=== PATIENT | male | born 1970 | race African-American/Black ===

== ENCOUNTER 2020-03-02 15:25 | Emergency (ER) | payer OTHER ==
[~2020-03-02] VITALS: Ht 167.6 cm; Wt 79.4 kg
[2020-03-02] MEDS ORDERED: TESSALON PERLE100 MG PO (17:39)
[2020-03-02] MEDS ORDERED: ZPAK PO (17:39)
[2020-03-02 18:11] VITALS: BP 123/84
== END 2020-03-02 18:13 | disposition home or self-care (01) ==
LOC: ER 15:25
DX: U07.1 COVID-19 (principal); J06.9 Acute upper respiratory infection, unspecified

== ENCOUNTER 2020-03-06 09:54 | Emergency (ER) | payer OTHER ==
[~2020-03-06] VITALS: Ht 167.6 cm; Wt 79.4 kg
[~2020-03-06 09:54] MED LIST: TESSALON PERLE100 MG PO; ZPAK PO
[2020-03-06 10:42] LABS: ABSOLUTE NEUTROPHILS 5.9 thou/uL (1.4-8.2); BASOPHILS 0.6 % (0.0-2.0); HEMATOCRIT 43.4 % (42.0-52.0); HEMOGLOBIN 15.3 gm/dL (14.0-18.0); LYMPHOCYTES 16.3 % (24.0-44.0); MCHC 35.2 g/dL (28.0-37.0); MCV 79.4 fL (80.0-100.0); MONOCYTES 7.6 % (1.0-8.0); PLATELET COUNT 213 thou/uL (150-400); POLYS 75.5 % (36.0-66.0); RBC 5.47 mil/uL (4.50-6.00); WBC 7.8 thou/uL (4.0-11.0)
[2020-03-06 10:57] LABS: ANION GAP 12 mmol/L (7-16); BUN 17 mg/dL (7-18); CALCIUM 8.8 mg/dL (8.5-10.1); CHLORIDE 95 mmol/L (98-107); CO2 25 mmol/L (21-32); CREATININE 1.7 mg/dL (0.7-1.3); GLUCOSE 145 mg/dL (74-106); POTASSIUM 3.6 mmol/L (3.5-5.1); SODIUM 132 mmol/L (136-145)
[2020-03-06 11:07] LABS: TROPONIN-I <0.06 ng/mL (<0.06)
--- NOTE | 2020-03-06 11:12 | EKG ---
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1970 Requested By: Vicente Covington Order Number: [id number] MD: Elias Telles Measurements Intervals [place] Rate: 97 P: 36 WA: 201 QRS: -3 QRSD: 81 T: 36 QT: 317 QTc: 403 Interpretive Statements Sinus rhythm Borderline prolonged WA interval Left atrial enlargement RSR' in V1 or V2, right VCD or RVH J-Point elevation No previous ECG available for comparison Electronically Signed On 03-06-2020 11:12:20 CDT by Elias Telles [email or web address] <ELECTRONICALLY SIGNED> By: Elias Telles MD, FAC 03/06/20 1112 1015 [id number] Elias Telles MD, [facility] /EPI
--- NOTE | 2020-03-06 11:56 | EKG ---
[facility] [place] [address] ELECTROCARDIOGRAM REPORT Name: DARRYN BUI Room #: REG [facility]#: [id number] Admission: 03/06/20 Attend Phys: Discharge: Date of : 68 Report #: [id number] THIS REPORT FOR: cc: GULSHAN - Karie family physician/PCP GULSHAN - Karie family physician/PCP Elias Telles MD [facility] ~ THIS REPORT FOR: //name// [facility] ED Test Date: 2020-03-06 Test Time: 10:24:08 Pat Name: DARRYN BUI Department: Room: Gender: M Stores Assistant: dev : 1970 Requested By: Vicente Covington Order Number: [id number] MD: Elias Telles Measurements Intervals [place] Rate: 93 P: 53 [place]: 207 QRS: 11 QRSD: 85 T: 37 QT: 324 QTc: 403 Interpretive Statements Sinus rhythm Probable left atrial enlargement J-Point elevation precordial leads Compared to ECG 03/06/2020 10:15:26 ST (T wave) deviation now present Electronically Signed On 03-06-2020 11:56:27 CDT by Elias Telles [email or web address] <ELECTRONICALLY SIGNED> By: Elias Telles MD, FACC 03/06/20 1156 [id number] Elias Telles MD, [facility] /EPI
[2020-03-06] MEDS ORDERED: PREDNISONE 20 M20 M1 PO (14:33)
[2020-03-06] MEDS ORDERED: AUGMENTIN 875-1 EACH PO (14:33)
[2020-03-06 15:04] VITALS: BP 109/74
== END 2020-03-06 15:04 | disposition home or self-care (01) ==
LOC: ER 09:54
PROVIDERS: Emergency Medicine
DX: U07.1 COVID-19 (principal); R79.1 Abnormal coagulation profile